=== PATIENT | male | born 1970 | race Caucasian/White ===

== ENCOUNTER 2019-08-03 20:22 | Emergency (ER) | payer BC, OTHER ==
--- NOTE | 2019-08-03 21:13 | EDM.PDOC ---
ED HPI GENERAL MEDICAL PROBLEM - General Chief Complaint: Genitourinary Problem Stated Complaint: FEVER,BODY ACHES,FATIGUE,UTI SYMPTOMS Time Seen by Provider: 08/03/19 20:50 Source of Information: Reports: Patient, Old Records, RN Notes Reviewed History Limitations: Reports: No Limitations - History of Present Illness INITIAL COMMENTS - FREE TEXT/NARRATIVE: 49-year-old gentleman presents emergency department a complaint of dysuria urgency and frequency he has had a fever for about 24 hours was also screened for COVID earlier today but he denies any respiratory symptoms no cough no shortness of breath he does feel body aches he is never had a urinary tract infection before - Related Data Allergies Allergy/AdvReac Type Severity Reaction Status Date / Time No Known Allergies Allergy Verified 08/03/19 20:36 Home Meds: Home Meds NK [No Known Home Meds] 06/05/19 [History] Past Medical History Genitourinary History: Reports: Prostate Disorder Musculoskeletal History: Reports: Arthritis - Infectious Disease History Infectious Disease History: Reports: Chicken Pox, Hepatitis A, Shingles - Past Surgical History Head Surgeries/Procedures: Reports: None HEENT Surgical History: Reports: None Cardiovascular Surgical History: Reports: None Respiratory Surgical History: Reports: None GI Surgical History: Reports: Hernia, Inguinal Male Surgical History: Reports: Circumcision Endocrine Surgical History: Reports: None Neurological Surgical History: Reports: None Musculoskeletal Surgical History: Reports: Arthroscopic Knee, Arthroscopic Procedure Dermatological Surgical History: Reports: None Social & Family History - Family History Family Medical History: Noncontributory - Tobacco Use Smoking Status *Q: Never Smoker - Caffeine Use Caffeine Use: Reports: Coffee ED ROS GENERAL - Review of Systems Review Of Systems: See Below Constitutional: Reports: Fever, Chills HEENT: Reports: No Symptoms Respiratory: Reports: No Symptoms Cardiovascular: Reports: No Symptoms GI/Abdominal: Reports: Abdominal Pain (Suprapubic) : Reports: Dysuria, Frequency, Hematuria, Pain, Urgency ED EXAM, RENAL/ - Physical Exam Exam: See Below Exam Limited By: No Limitations General Appearance: Alert, WD/WN, No Apparent Distress Respiratory/Chest: No Respiratory Distress GI/Abdominal: Soft, Tender (Tender suprapubic area) Back Exam: Normal Inspection, Full Range of Motion. No: CVA Tenderness (R), CVA Tenderness (L) Course - Vital Signs Last Recorded V/S: Last Vital Signs Temp 100.6 F 08/03/19 20:43 Pulse 122 H 08/03/19 20:43 Resp 16 08/03/19 20:43 BP 141/87 H 08/03/19 20:43 Pulse Ox 100 08/03/19 20:43 - Orders/Labs/Meds Orders: Active Orders 24 hr Category Date Time Status CULTURE URINE [RM] Urgent Lab 08/03/19 21:07 Ordered Labs: Laboratory Tests 08/03/19 Range/Units 20:46 Urine Color [place] A (YELLOW) Urine Appearance Cloudy A (CLEAR) Urine pH 7.0 (5.0-8.0) Ur Specific [place] 1.020 (1.008-1.030) Urine Protein 100 H (NEGATIVE) mg/dL Urine Glucose (UA) Negative (NEGATIVE) mg/dL Urine Ketones Negative (NEGATIVE) mg/dL Urine Occult Blood Large H (NEGATIVE) Urine Nitrite Negative (NEGATIVE) Urine Bilirubin Negative (NEGATIVE) Urine Urobilinogen 1.0 (0.2-1.0) EU/dL Ur Leukocyte Esterase Large H (NEGATIVE) Urine RBC Semi-packed H (0-5) Urine WBC 10-20 H (0-5) Ur Epithelial Cells Few Amorphous Sediment Few Urine Bacteria Few Urine Mucus Not seen Departure - Departure Time of Disposition: 21:12 Disposition: Home, Self-Care 01 Condition: Fair Clinical Impression: UTI, Urinary tract infectious disease - Discharge Information Instructions: Urinary Tract Infection, Adult, [id number] Referrals: PCP,None [Primary Care Provider] - Additional Instructions: Take full course of antibiotics please followup with your primary care provider in 3-5 days if not better, please call return to the emergency department with worsening of symptoms. Sepsis Event Note - Evaluation Sepsis Screening Result: Possible Sepsis Risk - Focused Exam Vital Signs: Vital Signs Temp Pulse Resp BP Pulse Ox 08/03/19 20:43 100.6 F 122 H 16 141/87 H 100 08/03/19 20:31 100.6 F 122 H 16 141/87 H 100 Date Exam was Performed: 08/03/19 Time Exam was Performed: 21:09 - My Orders Last 24 Hours: My Active Orders 08/03/19 21:07 CULTURE URINE [RM] Urgent - Assessment/Plan Last 24 Hours: My Active Orders 08/03/19 21:07 CULTURE URINE [RM] Urgent Plan: Assessment Acuity = acute Site and laterality = urinary tract infection Etiology = probable bacterial cause Manifestations = fever, dysuria, urgency, frequency Location of injury = Home Lab values = urinalysis reveals large leukocyte esterase packed RBCs consistent with hematuria 10-20 WBCs consistent with pyuria cultures pending Plan I did discuss options with him including further evaluation with more blood work however he declined would like to try the treatment outpatient basis for urinary tract infection therefore prescription written for Bactrim DS 1 tab p.o. twice daily x10 days follow-up primary care 3 to 5 days if no improvement culture results will be available at that time This note was dictated using [employer] voice recognition software please call with any questions on syntax or grammar.
== END 2019-08-03 21:22 | disposition home or self-care (01) ==
LOC: JP.ED 20:22
DX: N39.0 Urinary tract infection, site not specified (principal)
CPT/HCPCS: 81001; 87086; 87088; 87186; 99284

== ENCOUNTER 2019-08-05 11:58 | Emergency (ER) | payer BC, OTHER ==
--- NOTE | 2019-08-05 12:29 | EDM.PDOC ---
ED HPI GENERAL MEDICAL PROBLEM - General Chief Complaint: Flank Pain Stated Complaint: SOB,TEMP Time Seen by Provider: 08/05/19 12:10 Source of Information: Reports: Patient History Limitations: Reports: No Limitations - History of Present Illness INITIAL COMMENTS - FREE TEXT/NARRATIVE: 49-year-old male seen 2 days ago, had urinary urgency and frequency and was diagnosed with a UTI. He seemed to be a little better yesterday but overnight he got worse, and this morning he had difficulty sitting still with left flank pain radiating around to the left groin. He does have a history of renal stones. His was recently treated for UTI and they did have intercourse 4 nights ago. Left Flank Pain Score (Numeric/FACES): 6 - Related Data Allergies Allergy/AdvReac Type Severity Reaction Status Date / Time No Known Allergies Allergy Verified 08/03/19 20:36 Home Meds: Home Meds Sulfamethoxazole/Trimethoprim [Bactrim Ds Tablet] 1 tab PO BID 08/05/19 [History ] Past Medical History HEENT History: Reports: None Cardiovascular History: Reports: None Respiratory History: Reports: None Gastrointestinal History: Reports: None Genitourinary History: Reports: Prostate Disorder Musculoskeletal History: Reports: Arthritis Neurological History: Reports: None Psychiatric History: Reports: None Endocrine/Metabolic History: Reports: None Hematologic History: Reports: None Immunologic History: Reports: None Oncologic (Cancer) History: Reports: None Dermatologic History: Reports: None - Infectious Disease History Infectious Disease History: Reports: Chicken Pox, Hepatitis A, Shingles - Past Surgical History Head Surgeries/Procedures: Reports: None HEENT Surgical History: Reports: None Cardiovascular Surgical History: Reports: None Respiratory Surgical History: Reports: None GI Surgical History: Reports: Hernia, Inguinal Male Surgical History: Reports: Circumcision Endocrine Surgical History: Reports: None Neurological Surgical History: Reports: None Musculoskeletal Surgical History: Reports: Arthroscopic Knee, Arthroscopic Procedure Dermatological Surgical History: Reports: None Social & Family History - Family History Family Medical History: Noncontributory - Tobacco Use Smoking Status *Q: Never Smoker - Caffeine Use Caffeine Use: Reports: Coffee - Recreational Drug Use Recreational Drug Use: No ED ROS GENERAL - Review of Systems Review Of Systems: See Below Constitutional: Reports: Fever Respiratory: Reports: Cough GI/Abdominal: Reports: Nausea. Denies: Vomiting : Reports: Dysuria, Flank Pain (Left side), Frequency Skin: Reports: No Symptoms Neurological: Reports: No Symptoms Psychiatric: Reports: No Symptoms ED EXAM, RENAL/ - Physical Exam Exam: See Below Exam Limited By: No Limitations General Appearance: Alert, No Apparent Distress (Patient looks mildly uncomfortable but no distress) Respiratory/Chest: No Respiratory Distress, Lungs Clear Back Exam: No: CVA Tenderness (R), CVA Tenderness (L) Neurological: Alert, Oriented Psychiatric: Normal Affect, Normal Mood Skin Exam: Warm, Dry Course - Vital Signs Last Recorded V/S: Last Vital Signs Temp 98.3 F 08/05/19 12:03 Pulse 99 08/05/19 12:03 Resp 16 08/05/19 12:03 BP 111/78 08/05/19 12:03 Pulse Ox 100 08/05/19 12:03 - Orders/Labs/Meds Meds: Medications Discontinued Medications Generic Name Dose Route Start Last Admin Trade Name Freq PRN Reason Stop Dose Admin Ceftriaxone Sodium 1 gm 08/05/19 12:51 08/05/19 13:26 Rocephin IM 08/05/19 12:52 1 gm ONETIME ONE Administration - Re-Assessments/Exams Free Text/Narrative Re-Assessment/Exam: 08/05/19 12:54 CT of the abdomen and pelvis was done without contrast to rule out renal stone or hydronephrosis. Urine culture was reviewed from 2 days ago, E. coli grew resistant to Bactrim so this needs to be changed. When he returned from CT he was given 1 g of IM Rocephin. 08/05/19 12:59 CT shows no obvious perinephric stranding, hydronephrosis or renal stone. Patient was given 1 g of IM Rocephin and will take 500 mg of Cipro twice daily for at least 7 days. Recheck in 2 to 3 days if not improving despite treatment. 08/05/19 13:59 IMPRESSION: 1. There is a small 1 millimeter left renal calculus though there is no evidence of current obstructive uropathy. There is no calculus within the bladder. The right kidney appears normal. 2. Bladder wall thickening which is usually due to inflammation or chronic bladder outlet obstruction. However, the prostate is not enlarged. Further clinical correlation advised. 3. Low-density splenic lesions likely cysts, unchanged. 4. Changes of a right inguinal herniorrhaphy. Probable postoperative seroma near the inner inguinal ring unchanged Departure - Departure Time of Disposition: 13:30 Disposition: Home, Self-Care 01 Clinical Impression: UTI, Urinary tract infectious disease - Discharge Information Instructions: Urinary Tract Infection, Adult, [id number] Referrals: PCP,None [Primary Care Provider] - Forms: ED Department Discharge Care Plan Goals: Take ciprofloxacin 500 mg twice daily for at least 7 days, start this morning. Consider rechecking in 2 to 3 days if not improving satisfactorily, and return anytime if worsening such as fever, persistent increased pain or vomiting the medication. Sepsis Event Note - Evaluation Sepsis Screening Result: No Definite Risk - Focused Exam Vital Signs: Vital Signs Temp Pulse Resp BP Pulse Ox 08/05/19 12:03 98.3 F 99 16 111/78 100 08/05/19 12:02 98.3 F 99 16 111/78 100 Date Exam was Performed: 08/05/19 Time Exam was Performed: 13:58
[2019-08-05] MEDS ORDERED: cefTRIAXone 1 GM Vial IM ONE (12:51)
--- NOTE | 2019-08-05 13:11 | CRLCT ---
INDICATION: Left flank pain COMPARISON: April 29, 2019 TECHNIQUE: CT examination of the abdomen and pelvis was performed without intravenous contrast. Thin section axial images were obtained from the lung bases through the pubic symphysis. Oral contrast was not administered. Please note that all CT scans at this facility use dose modulation, iterative reconstruction, and/or weight-based dosing when appropriate to reduce radiation dose to as low as reasonably achievable. FINDINGS: LUNG BASES: The lung bases as visualized appear normal.The heart size is normal at the lung bases. LIVER/BILIARY SYSTEM:The liver is normal in size and configuration given the lack of intravenous contrast. There is no visible focal mass and there is no intra- or extra hepatic biliary ductal dilatation.The gall bladder appears normal. ADRENALS: Normal non-contrast appearance KIDNEYS, URETERS and BLADDER:The kidneys are normal in size. There is a 1 millimeter calculus in the left kidney. However, there is no hydronephrosis or hydroureter on either side and there is no stone within the bladder. Bladder wall is thickened. This may be related to mechanical obstruction or inflammation. The prostate however is not enlarged. Further evaluation of the bladder finding is advised SPLEEN:Splenic lesions again identified. These are low density and likely cysts. PANCREAS: Normal non-contrast appearance. RETROPERITONEUM and MESENTERY: There is no mass, adenopathy or aortic aneurysm. GASTROINTESTINAL SYSTEM: There is no evidence of diverticulitis, colitis, mechanical obstruction, or appendicitis. The small bowel as visualized appears normal. PELVIS: No mass, adenopathy or free fluid. OSSEOUS STRUCTURES and ABDOMINAL WALL: There is an age-appropriate appearance of the osseous structures.There are changes of a right inguinal herniorrhaphy. Near the internal ring is a low-density structure measuring 2.8 centimeters unchanged. This is probably a postoperative seroma. OTHER: No free fluid or free air. IMPRESSION: 1. There is a small 1 millimeter left renal calculus though there is no evidence of current obstructive uropathy. There is no calculus within the bladder. The right kidney appears normal. 2. Bladder wall thickening which is usually due to inflammation or chronic bladder outlet obstruction. However, the prostate is not enlarged. Further clinical correlation advised. 3. Low-density splenic lesions likely cysts, unchanged. 4. Changes of a right inguinal herniorrhaphy. Probable postoperative seroma near the inner inguinal ring unchanged Please note that all CT scans at this facility use dose modulation, iterative reconstruction, and/or weight-based dosing when appropriate to reduce radiation dose to as low as reasonably achievable. Dictated by Ankur Canas MD @ Aug 05 2019 12:58PM Signed by Dr. Ankur Canas @ Aug 05 2019 1:08PM
== END 2019-08-05 13:36 | disposition home or self-care (01) ==
LOC: JP.ED 11:58
DX: N39.0 Urinary tract infection, site not specified (principal)
CPT/HCPCS: 74176; 96372; 99284; J0696

== ENCOUNTER 2020-02-19 07:02 | Day surgery (SDC) | payer BC ==
[2020-02-19] MEDS ORDERED: fentaNYL 100 MCG/2 ML SDV ONE (07:49)
[2020-02-19] MEDS ORDERED: Midazolam 1 MG/ML 2 ML SDV ONE (07:49)
[2020-02-19] MEDS ORDERED: Propofol 200 MG/20 ML SDV ONE (07:49)
[2020-02-19] MEDS ORDERED: Sodium Chloride 0.9% 1,000 ML IV SCH (08:00)
--- NOTE | 2020-02-19 12:23 | OR ---
DATE OF PROCEDURE: 02/19/2020 SURGEON: Carlos Alberto Ochoa MD PROCEDURE: Colonoscopy. FINDINGS: Normal colonoscopy. COMPLICATIONS: None. PHYTOCHEMISTRY PROFESSOR: None. ANESTHESIA: MAC. PREOPERATIVE DIAGNOSIS: Screening colonoscopy. POSTOPERATIVE DIAGNOSIS: Screening colonoscopy. RISKS: Risks, benefits, alternatives, and limitations including, but not limited to infection, bleeding, and perforation were explained to the patient who wished to proceed. We discussed false positives and false negatives. PROCEDURE IN DETAIL: The patient was placed in left lateral decubitus position. Digital rectal exam was performed without abnormality. Scope was introduced and advanced atraumatically to the ileocecal valve. A photo was taken of this. Scope was brought back to the ascending, transverse, descending colon, and retroflexed. No colitis. No old or new blood. No masses. No polyps. No diverticulosis. Greater than 8 minutes was spent in removing the scope. The patient tolerated the procedure well. Carlos Alberot Ochoa MD /[id number]
== END 2020-02-19 10:13 | disposition home or self-care (01) ==
LOC: JP.SDS 07:02
PROVIDERS: ATTEND Surgery
DX: Z12.11 Encounter for screening for malignant neoplasm of colon (principal)
CPT/HCPCS: 45378; J2250; J2704; J3010; J7030